=== PATIENT | male | born 1975 | race African-American/Black ===

== ENCOUNTER 2021-01-11 08:38 | Outpatient (CLI) | payer OTHER, SELFPAY ==
--- NOTE | ~2021-01-11 | XR_ITS ---
EXAMINATION: XR abdomen/kub 1V EXAM DATE: 01/11/2021 09:12 INDICATION: Renal angle tenderness. Left flank pain. Stomach rumbling. Symptoms one month. TECHNIQUE: Frontal projection of the upper abdomen, frontal projection lower abdomen/pelvis for inter pretation. There is no prior study for comparison. FINDINGS: There is expected amount of colonic stool and gas. No small bowel dilation, nonobstructiv e bowel gas pattern. There are no suspicious calcifications identified. There is no organomegaly suspected. Moderate bilateral hip osteoarthritis. IMPRESSION: No suspicious calcifications identified. Reviewed, dictated and finalized at location A. ZINE FEEDER
== END 2021-01-11 08:39 ==
PROVIDERS: PCP Nurse Practitioner Family; Visit Provider Nurse Practitioner Family
DX: R10.829 Rebound abdominal tenderness, unspecified site (principal)
CPT/HCPCS: 74018